=== PATIENT | female | born 1960 ===

== ENCOUNTER 2024-08-11 10:31 | Outpatient (CLI) | payer OTHER, SELFPAY ==
--- OUTSIDE RECORDS SUMMARY | 2024-08-11 12:04 | XMS_ITS | Clinical Summary ---
Author Organization [facility] Address [address] [place] [address] Care Team Providers Care Mixing And Dispensing Supervisor Name Role Phone Elizabeth Uriarte NP Primary Care Provider [phone] Allergies No known active allergies Medications cetirizine 10 mg capsule Take 10 mg by mouth every morning Active amLODIPine (NORVASC) 5 mg tablet Take 1 tablet (5 mg total) by mouth every evening Active pravastatin (PRAVACHOL) 40 mg tablet Take 1 tablet (40 mg total) by mouth every evening Active sod fdaiw-qcxpio-ol ueez bottle 2,300-700 mg kit Administer 1 spray into each nostril 3 (three) times a day 1 kit 4 Active Additional Information Patient not taking.Reported on 09/30/2023 oxyCODONE (ROXICODONE) 5 mg immediate release tabletIndicatio ns:Pain Take 1 tablet (5 mg total) by mouth every 4 (four) hours as needed for pain (For pain not controlled by acetaminophen/ib uprofen) 10 tablet 4 Active Additional Information Patient not taking.Reported on 09/30/2023 meloxicam (MOBIC) 15 mg tablet Take 1 tablet (15 mg total) by mouth daily 30 tablet 4 Active acetaminophen ER (TYLENOL) 650 mg 8 hr tablet Take 1 tablet (650 mg total) by mouth every 8 (eight) hours as needed for pain Active UNABLE TO FIND biotin Activ e Active Problems Problem Noted Date Diagnosed Date Tinnitus, bilateral 10/06/2023 Bipolar affective disorder, remission status uns pecified 08/31/2023 Chronic pansinusitis 07/06/2023 Encounters Date Type Department Care Team Description 07/07/2024 Telephone [facility] [address] [facility] 4th Floor [address] [place] [phone] Shira Flores Medical Question/Miscellaneo us 06/23/2024 9:36 AM OPERATIONS ASSISTANT - 06/23/2024 11:59 PM OPERATIONS ASSISTANT Hospital Encounter [facility] [address] [place] [id number] Silverio Serrano MD Adhesive capsulitis of left shoulder (Primary Dx) Discharge Disposition: Discharge to home or self care 06/23/2024 Orders Only [facility] [address] [place] [address] 4th Floor [address] [place] [phone] Latonia Camejo MD Adhesive capsulitis of left shoulder (Primary Dx); Neck pain 06/15/2024 9:40 AM OPERATIONS ASSISTANT [facility] Visit [facility] [address] [place] [address] 4th [address] [place] [address] Adhesive capsulitis of left shoulder (Primary Dx); Left upper limb pain; Neck pain from Last 3 Months Surgical History Surgery Date Site/Laterality Comments FLUORO GUIDED INJECTION SHOULDER LEFT 06/23/2024 Lef t Medical History Medical History Date Comments Hypertension Hyperlipidemia Social History Tobacco Use Types Packs/Day Years Used Date Smoking Tobacco: Former Cigarettes Smokeless Tobacco: Never Tobacco Cessation:Counseling Given: Not Answered AUDIT-C Answer Date Recorded Q1: How often do you have a drink containing alc ohol? 2-4 times a month 06/15/2024 Q2: How many drinks containi ng alcohol do you have on a typical day when you are drinking? 1 or 2 06/15/2024 Q3: How often do you have si x or more drinks on one occasion? Never 06/15/2024 Hunger Vital Sign Answer Date Recorded Within the past 12 months, y ou worried that your food would run out before you got the money to buy more. Sometimes true Within the past 12 months, t he food you bought just didn't last and you didn't have money to get more. Sometimes true 01/2025 Personal Safety Answer Date Recorded Have you ever been in or are you currently in a harmful physical or emotional relationship or is someone making you feel afraid or unsafe? Denies 08/18/2023 Comments Unknown Sex and Gender Information Value Date Recorded Sex Assigned at Not on file Legal Sex Female 2:11 AM OPERATIONS ASSISTANT Gender Identity Not on file Sexual Orientation Not on file Obstetrics History Last Filed Vital Signs Vital Sign Reading Time Taken Comments Blood Pressure 126/86 06/23/2024 10:57 AM OPERATIONS ASSISTANT Pulse 67 06/23/2024 10:57 AM OPERATIONS ASSISTANT Temperature 36.6 C (97.9 F) 08/18/2023 10:12 AM CDT Respiratory Rate 16 06/23/2024 10:5 7 AM OPERATIONS ASSISTANT Oxygen Saturation 97% 08/18/2023 2:0 0 PM CDT Inhaled Oxygen Concentration - - Weight 79.4 kg (175 lb) 10/24/2023 10:1 8 AM CDT pt reported weight Height 162.6 cm (5' 4 ) 10/24/2023 10:1 8 AM CDT Body Mass Index 30.04 10/24/2023 10:18 AM CDT Plan of Treatment Health Maintenance Due Date Last Done Comments Breast Cancer Screening-Mammogram 1960 Cervical Cancer Screening 1960 Colon Cancer Screening-Colonoscopy 1960 Depression Screening 1960 Hepatitis C Screening 1960 Hepatitis B Screening 02/19/1978 Regular Well Visit/Exam 18-64 02/19/1978 Zoster Vaccine (1 of 2) 02/19/2010 Covid-19 Vaccine ( season) 2024 02/22/2022, 02/22/2022, 04/26/2021, Additional history exists Influenza Vaccine (#1) 2024 DTaP/Tdap/Td Vaccine (2 - Td or Tdap) 01/30/2031 01/30/2021 Pneumococcal vaccine <65 Aged Out No longer eligible based on patient's age to complete this topic Procedures Procedure Name Priority Date/Time Associated Diagnosis Comments FLUORO GUIDED INJECTION SHOULDER LEFT Schedule Routine, Read Routine (OP Routine) 06/23/2024 10:46 AM OPERATIONS ASSISTANT Adhesive capsulitis of left shoulder from Last 3 Months Results * FL Fluoro Guided Injection Shoulder Left (GLENOHUMERAL JOINT) (06/23/2024 10:46 AM OPERATIONS ASSISTANT) Narrative [facility] - 06/23/2024 10:49 AM OPERATIONS ASSISTANT The images from this study are not interpreted by Radiology. Please refer to the physician's procedure / OR operative note. 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
--- OUTSIDE RECORDS SUMMARY | 2024-08-11 12:04 | XMS_ITS | Referral Summary ---
Author Organization [facility] Address [address] [place] [address] Care Team Providers Care Poison Information Specialist Name Role Phone Elizabeth Uriarte NP Primary Care Provider [phone] Encounters Date Type Department Care Team Description 07/07/2024 Telephone [facility] [address] [place] [address] Floor [address] [place] [address] Shira Flores Medical Question/Miscellaneo us 06/23/2024 Orders Only [facility] [address] [place] [address] Floor [address] [place] [address] Latonia Camejo MD Adhesive capsulitis of left shoulder (Primary Dx); Neck pain 06/23/2024 9:36 AM NYLON MACHINE OPERATOR - 06/23/2024 11:59 PM NYLON MACHINE OPERATOR Hospital Encounter [facility] [address] [place] [id number] Silverio Serrano MD Adhesive capsulitis of left shoulder (Primary Dx) Discharge Disposition: Discharge to home or self care 06/15/2024 9:40 AM NYLON MACHINE OPERATOR [facility] [address] [place] [address] Floor [address] [place] [address] Adhesive capsulitis of left shoulder (Primary Dx); Left upper limb pain; Neck pain from Last 3 Months Allergies No known active allergies Medications cetirizine 10 mg capsule Take 10 mg by mouth every morning Active amLODIPine (NORVASC) 5 mg tablet Take 1 tablet (5 mg total) by mouth every evening Active pravastatin (PRAVACHOL) 40 mg tablet Take 1 tablet (40 mg total) by mouth every evening Active sod qbhej-ndbmqf-rg ueez bottle 2,300-700 mg kit Administer 1 [...] status uns pecified 08/31/2023 Chronic pansinusitis 07/06/2023 Social History Tobacco Use Types Packs/Day Years [...] on file Legal Sex Female 2:11 AM NYLON MACHINE OPERATOR Gender Identity Not on file Sexual Orientation Not on file Last Filed Vital Signs Vital Sign Reading Time Taken Comments Blood Pressure 126/86 06/23/2024 10:57 AM NYLON MACHINE OPERATOR Pulse 67 06/23/2024 10:57 AM NYLON MACHINE OPERATOR Temperature 36.6 C (97.9 F) 08/18/2023 10:12 AM CDT Respiratory Rate 16 06/23/2024 10:5 7 AM NYLON MACHINE OPERATOR Oxygen Saturation 97% 08/18/2023 2:0 0 PM CDT Inhaled Oxygen Concentration - - Weight 79.4 kg (175 lb) 10/24/2023 10:1 8 AM CDT pt reported weight Height 162.6 cm (5' 4 ) 10/24/2023 10:1 8 AM CDT Body Mass Index 30.04 10/24/2023 10:18 AM CDT Plan of Treatment Not on file Procedures Procedure Name Priority Date/Time Associated Diagnosis Comments FLUORO GUIDED INJECTION SHOULDER LEFT Schedule Routine, Read Routine (OP Routine) 06/23/2024 10:46 AM NYLON MACHINE OPERATOR Adhesive capsulitis of left shoulder from Last 3 Months Results * FL Fluoro Guided Injection Shoulder Left (GLENOHUMERAL JOINT) (06/23/2024 10:46 AM NYLON MACHINE OPERATOR) Narrative [facility] - 06/23/2024 10:49 AM NYLON MACHINE OPERATOR The images from this study are not interpreted by Radiology. Please refer to the physician's procedure / OR operative note. 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
== END 2024-08-11 10:32 | disposition home or self-care (01) ==
LOC: ANHAUDIO 10:32
DX: H93.12 Tinnitus, left ear (principal)
CPT/HCPCS: 92557; 92567